=== PATIENT | female | born 1980 | race Caucasian/White ===

== ENCOUNTER → 2017-01-20 | Outpatient (CLI) | payer BC ==
--- NOTE | 2017-01-21 16:02 | MR ---
EXAMINATION TYPE: MR knee RT wo con DATE OF EXAM: 01/20/2017 COMPARISON: Radiographs of the right lower extremity dated 01/14/2017 HISTORY: Rt. knee pain TECHNIQUE: Multiplanar, multisequence imaging of the right knee is performed without IV contrast. FINDINGS: MEDIAL MENISCUS: Anterior and posterior horns are intact without tear. LATERAL MENISCUS: There is a longitudinal tear of the anterior horn of the lateral meniscus with free edge blunting indicative of a small additional radial tear. Longitudinal tear extends into the body of the meniscus. No Meniscal cyst is seen or discontinuity of the meniscal femoral ligament. No meniscal extrusion is pre sent. Lateral collateral ligament appears unaffected.. CRUCIATE LIGAMENTS: The anterior and posterior cruciate ligaments are intact and unremarkable. COLLATERAL LIGAMENTS: The medial collateral ligament and lateral collateral ligament complex are inta ct and unremarkable. EXTENSOR MECHANISM: Visualized quadriceps and patellar tendons are intact. EFFUSION: No significant suprapatellar joint effusion. POPLITEAL CYST: No popliteal/billy cyst. TRICOMPARTMENT SPACES: Symmetric and with no narrowing. CARTILAGE: Heterogenous signal is seen within the anterior medial femoral condylar cartilage with par tial-thickness defect measuring 4 mm. Remainder of the cartilage of the medial compartment, lateral c ompartment and patellofemoral compartment is unremarkable. BONE MARROW SIGNAL: No focal abnormal marrow signal is appreciated. OTHER: No additional significant abnormality is appreciated. IMPRESSION: 1. Small longitudinal tear and radial free edge tear of the anterior horn of the lateral meniscus wit hout parameniscal cyst, meniscal extrusion, or meniscal femoral ligament disruption. Lateral collater al ligament appears unremarkable. 2. Small 4 mm partial-thickness medial femoral condylar cartilaginous defect.
== END | disposition home or self-care (01) ==
LOC: RADMRIMAIN 11:36
PROVIDERS: ATTEND Orthopaedic Surgery
DX: S83.281A Other tear of lateral meniscus, current injury, right knee, initial encounter (principal); M94.8X6 Other specified disorders of cartilage, lower leg

== ENCOUNTER → 2018-01-11 | Outpatient (CLI) | payer BC | END | disposition home or self-care (01) | LOC: LABWHC1 08:10 | PROVIDERS: ATTEND Otolaryngology | DX: J30.89 Other allergic rhinitis (principal) | CPT/HCPCS: 36415 ==

== ENCOUNTER → 2018-07-19 | Outpatient (CLI) | payer BC ==
[2018-07-19 17:01] LABS: Potassium 4.5 mmol/L (3.5-5.5)
== END ==
LOC: LABWHC1 10:15
PROVIDERS: ATTEND Physician Assistant
DX: L70.0 Acne vulgaris (principal); Z79.899 Other long term (current) drug therapy
CPT/HCPCS: 36415; 82565; 84132; 84520

== ENCOUNTER → 2019-11-21 | Outpatient (CLI) | payer BC ==
--- NOTE | 2019-11-23 06:33 | MR ---
EXAMINATION TYPE: MR knee RT wo con DATE OF EXAM: 11/21/2019 COMPARISON: MRI right knee 01/20/2017 HISTORY: Pain on the inside of and behind right knee x a couple years. TECHNIQUE: Multiplanar, multisequence imaging of the right knee is performed without IV contrast. FINDINGS: MEDIAL MENISCUS: Anterior and posterior horns are intact without tear. LATERAL MENISCUS: Anterior and posterior horns are intact without tear. There is degenerative signal of the lateral meniscus posterior body free edge. CRUCIATE LIGAMENTS: The anterior and posterior cruciate ligaments are intact and unremarkable. COLLATERAL LIGAMENTS: The medial collateral ligament and lateral collateral ligament complex are inta ct and unremarkable. EXTENSOR MECHANISM: Visualized quadriceps and patellar tendons are intact. EFFUSION: Small suprapatellar joint effusion. POPLITEAL CYST: No popliteal/billy cyst. TRICOMPARTMENT SPACES: No significant narrowing. Minimal lateral compartment degenerative spurring. CARTILAGE: Minimal thinning of the anterior medial femoral condyle. BONE MARROW SIGNAL: No focal abnormal marrow signal is appreciated. OTHER: No additional significant abnormality is appreciated. IMPRESSION: 1. Degenerative signal of the free edge of the lateral meniscus posterior body, without discrete tear . 2. Small suprapatellar joint effusion. 3. Minimal lateral compartment spurring and chondrosis.
== END | disposition home or self-care (01) ==
LOC: RADMRIMAIN 08:49
PROVIDERS: ATTEND Orthopaedic Surgery
DX: M17.11 Unilateral primary osteoarthritis, right knee (principal); M25.461 Effusion, right knee; M22.41 Chondromalacia patellae, right knee; S83.249A Other tear of medial meniscus, current injury, unspecified knee, initial encounter